=== PATIENT | male | born 1995 | race Hispanic/Latino ===

== ENCOUNTER 2020-04-17 10:14 | Emergency (ER) | payer MEDICAID, OTHER ==
[2020-04-17] MEDS ORDERED: Boostrix 0.5 ML (Tdap) VIAL ONE (10:49)
== END 2020-04-17 11:08 | disposition home or self-care (01) ==
LOC: BURERS 10:14
DX: S61.212A Laceration without foreign body of right middle finger without damage to nail, initial encounter (principal); I10 Essential (primary) hypertension; F17.220 Nicotine dependence, chewing tobacco, uncomplicated; Z23 Encounter for immunization; W22.8XXA Striking against or struck by other objects, initial encounter
CPT/HCPCS: 12001; 90471; 90715